=== PATIENT | male | born 1990 | race Caucasian/White ===

== ENCOUNTER 2017-03-06 00:42 | Emergency (ER) | payer MEDICAID ==
[2017-03-06 01:09] LABS: PLATELET COUNT 221 10^3/uL (150-400)
--- NOTE | 2017-03-06 02:12 | EDPHY ---
H & P Stated Complaint: SI, M1, no attempt Source: Patient Exam Limitations: No limitations - Medical/Surgical History Hx Asthma: No Hx Chronic Respiratory Disease: No Hx Diabetes: No Hx Cardiac Disease: No Hx Renal Disease: No Hx Cirrhosis: No Hx Alcoholism: No Hx HIV/AIDS: No Hx Splenectomy or Spleen Trauma: No Other PMH: anxiety/depression, transgender surgery - Social History Smoking Status: Never smoked Time Seen by Provider: 03/06/17 01:35 HPI/ROS: HPI The patient presents with suicidal ideation. He says he has been feeling this way several months, however his feelings have gotten progressively stronger. He says he has 5 different plans to kill himself and mandeep drafted an 8 page letter for his parents as a suicide note. A co-worker called 911. The [facility]. He said he drink heavily tonight. He was placed on a mental health hold by [facility]. He says that he takes Wellbutrin and Lexapro sporadically and missed his most recent mental health appointment. He denies any drug use. He said he did scratch his right thigh, however denies any other injuries.. REVIEW OF SYSTEMS Constitutional: No fever, no chills. Eyes: No discharge. ENT: No sore throat. Cardiovascular: No chest pain, no palpitations. Respiratory: No cough, no shortness of breath. Gastrointestinal: No abdominal pain, no vomiting. Genitourinary: No hematuria. Musculoskeletal: No back pain. Skin: No rashes. Neurological: No headache. 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 PHYSICAL General Appearance: Alert, no distress Eyes: Pupils equal and round no pallor or injection ENT, Mouth: Mucous membranes moist Respiratory: There are no retractions, lungs are clear to auscultation Cardiovascular: Regular rate and rhythm Gastrointestinal: Abdomen is soft and non-tender, no masses, bowel sounds normal Neurological: A&O, moves all extremities Skin: Warm and dry, no rashes Musculoskeletal: Neck is supple non tender Extremities: symmetrical, full range of motion Psychiatric: Patient is oriented X 3, there is no agitation (Riguzzi,Olivia) Constitutional: Initial Vital Signs Temperature (C) 36.4 C 03/06/17 00:52 Heart Rate 84 03/06/17 00:52 Respiratory Rate 15 03/06/17 00:52 Blood Pressure 97/70 L 03/06/17 00:52 O2 Sat (%) 98 03/06/17 00:52 O2 Delivery Mode Room Air Allergies/Adverse Reactions: No Known Allergies Allergy (Unverified 03/18/16 16:15) Home Medications: Medication Instructions Recorded Escitalopram Oxalate [Lexapro] 10 mg PO 03/18/16 Testosterone IM [Testosterone 0.5 ml 03/18/16 100mg/ml IM inj (*)] buPROPion [Wellbutrin 75mg (*)] 75 mg PO 03/18/16 Medical Decision Making ED Course/Re-evaluation: I took over care of this patient at 7:00 a.m.. This patient is here for suicidal ideation and alcohol intoxication. The patient is on an M1 hold. 12:20 p.m., the patient has been seen and evaluated by Behavioral Health. The patient is not suicidal. The patient has been cleared for discharge by the on- call psychiatrist. Outpatient follow-up has been arranged for him. Return to emergency department precautions reviewed. All questions answered. Patient discharged in good condition. (Jeanette Calix) Differential Diagnosis: 26-year-old female to male transgender patient presents brought in by ambulance on an M1 hold for suicidal ideation from the [facility]. He is suicidal and has he has several plans to kill himself, drafted a suicide note to his parents tonight. History of anxiety and depression. He has been drinking alcohol tonight and is quite intoxicated. Differential diagnosis includes alcohol intoxication, acute stress response, suicidal ideation due to worsening depression. In the emergency department, labs were checked and were unremarkable, except for alcohol level. The patient was stable throughout my shift. At approximately 8 o'clock, the case was signed out to the oncoming provider Dr. Calix pending the patient's sobriety and mental health evaluation. ( Olivia Qiu) - Data Points Laboratory Results: Laboratory Results 03/06/17 01:02 03/06/17 01:02 03/06/17 03/06/17 03/06/17 01:58 01:02 01:02 WBC 7.04 10^3/uL 10^3/uL (3.80-9.50) RBC 5.40 10^6/uL 10^6/uL (4.40-6.38) Hgb 16.2 g/dL g/dL (13.7-17.5) Hct 47.3 % % (40.0-51.0) MCV 87.6 fL fL (81.5-99.8) MCH 30.0 pg pg (27.9-34.1) MCHC 34.2 g/dL g/dL (32.4-36.7) RDW 12.5 % % (11.5-15.2) Plt Count 221 10^3/uL 10^3/uL (150-400) MPV 8.6 fL L fL (8.7-11.7) Neut % (Auto) 76.4 % H % (39.3-74.2) Lymph % (Auto) 16.9 % % (15.0-45.0) Hardy % (Auto) 5.0 % % (4.5-13.0) Eos % (Auto) 0.7 % % (0.6-7.6) Baso % (Auto) 0.7 % % (0.3-1.7) Nucleat RBC Rel Count 0.0 % % (0.0-0.2) Absolute Neuts (auto) 5.38 10^3/uL 10^3/uL (1.70-6.50) Absolute Lymphs (auto) 1.19 10^3/uL 10^3/uL (1.00-3.00) Absolute Monos (auto) 0.35 10^3/uL 10^3/uL (0.30-0.80) Absolute Eos (auto) 0.05 10^3/uL 10^3/uL (0.03-0.40) Absolute Basos (auto) 0.05 10^3/uL 10^3/uL (0.02-0.10) Absolute Nucleated RBC 0.00 10^3/uL 10^3/uL (0-0.01) Immature Gran % 0.3 % % (0.0-1.1) Immature Gran # 0.02 10^3/uL 10^3/uL (0.00-0.10) Sodium 149 mEq/L H mEq/L (134-144) Potassium 3.9 mEq/L mEq/L (3.5-5.2) Chloride 105 mEq/L mEq/L (97-110) Carbon Dioxide 28 mEq/l mEq/l (22-31) Anion Gap 16 mEq/L mEq/L (8-16) BUN 7 mg/dL mg/dL (7-23) Creatinine 0.8 mg/dL mg/dL (0.7-1.3) Estimated GFR > 60 Glucose 90 mg/dL mg/dL (70-100) Calcium 9.4 mg/dL mg/dL (8.5-10.4) Urine Opiates Screen NEGATIVE (NEGATIVE) Urine Barbiturates NEGATIVE (NEGATIVE) Ur Phencyclidine Scrn NEGATIVE (NEGATIVE) Ur Amphetamine Screen NEGATIVE (NEGATIVE) U Benzodiazepines Scrn NEGATIVE (NEGATIVE) Urine Cocaine Screen NEGATIVE (NEGATIVE) U Marijuana (THC) Screen NEGATIVE (NEGATIVE) Ethyl Alcohol 227 mg/dL H mg/dL (0-10) Medications Given: Discontinued Medications Ibuprofen (Motrin) 600 mg PO EDNOW ONE Stop: 03/06/17 03:04 Last Admin: 03/06/17 03:24 Dose: 600 mg Departure - Departure Disposition: Home, Routine, Self-Care Clinical Impression: Situational depression Alcohol intoxication Qualifiers: Complication of substance-induced condition: with delirium Qualified Code(s): F10.921 - Alcohol use, unspecified with intoxication delirium Condition: Good Instructions: Alcohol Intoxication (ED) Additional Instructions: Read and follow provided instructions. Follow-up with your behavioral health provider as discussed in the emergency department. Return to the emergency department for worsening symptoms or other serious concerns. Do not drink alcohol. Referrals: [facility],. [Clinic] - As per Instructions
[2017-03-06] MEDS ORDERED: IBUPROFEN 600 MG TAB PO ONE (03:03)
[2017-03-06 12:42] VITALS: BP 100/56; PULSE 78; RESP 16; TEMP 97.5; O2SAT 98
== END 2017-03-06 12:42 | disposition home or self-care (01) ==
LOC: EDUNIT#
DX: F43.21 Adjustment disorder with depressed mood (principal); F10.921 Alcohol use, unspecified with intoxication delirium
CPT/HCPCS: 80305; G0480